=== PATIENT | male | born 1955 | race Caucasian/White ===

== ENCOUNTER 2019-05-07 09:00 | Observation (INO) ==
[2019-05-07] MEDS ORDERED: Aspirin 325 MG TABLET PO ONE (09:18)
[2019-05-07] MEDS ORDERED: 0.9 % Sodium Chloride 1,000 ML IVC ONE (09:18)
--- NOTE | 2019-05-07 09:19 | Emergency Department Note ---
Disposition Clinical Impression: Atrial fibrillation with RVR, New onset a-fib Disposition: Admitted As Inpatient Condition: Good Forms: ED Satisfaction Letter Time of Disposition: 10:37 (accepted by Dr. Verdin) General Adult HPI - General Stated complaint: afib rvr Time Seen by Provider: 05/07/19 09:08 Source: patient Mode of arrival: ambulatory Limitations: no limitations Nursing Notes Reviewed: Yes Vital Signs Reviewed: Yes - History of Present Illness HPI Narrative: Patient is a 64-year-old male presenting with abnormal heart rhythm. Patient has known history of hypertension and hyperlipidemia as well as diabetes. Patient was sent here from colonoscopy preop, as patient had an EKG performed which showed patient to be an atrial fibrillation. Patient denies any history of atrial fibrillation, he denies history of similar normal heart rhythm. He is currently asymptomatic at this time, denies shortness of breath, chest pain or palpitations. He is not any anticoagulation medications at this point. He denies leg swelling, difficulty breathing. He does have history of colectomy secondary to colon cancer, which is why he was having the repeat colonoscopy performed today. Pain Scale: 0 - Related Data Allergies Allergy/AdvReac Type Severity Reaction Status Date / Time atorvastatin AdvReac See Verified 05/07/19 08:00 Comments Review of Systems: In addition to that documented in the HPI above, the additional ROS was obtained: General: Denies fever. Denies chills. Denies weight loss. Denies behavioral change. Eyes: Denies visual changes. ENT: Denies nasal congestion. Denies sore throat. Denies hearing change. Cardio: Denies chest pain. Denies palpitations. Respiratory: Denies cough. Denies shortness of breath. Denies wheezing. GI: Denies nausea, Denies vomiting, or diarrhea. Denies hematochezia denies melena. Denies abdominal pain. : Denies dysuria, hematuria, or urinary retention MSK: Denies back pain. Denies joint swelling. Neuro: Denies slurred speech. Denies numbness or tingling. Denies focal weakness. Denies headache. Denies loss of consciousness. Psych: Denies mood changes. All systems ED: reviewed and negative except as stated. Review of Systems: As Per HPI Past Medical History - Past Medical History Medical history: Reports: cancer, diabetes, hypertension Surgical history: Reports: colectomy, tonsillectomy Psychiatric history: Reports: no psych history - Social History Smoking Status: Former smoker Smokeless Tobacco Status: No Alcohol use: Reports: none Drug use: Reports: none Physical Exam General: Conversant. No apparent distress. Follow commands. Appears stated age. Neck: No JVD. Trachea midline. Neck supple. Eyes: PERRL. No scleral icterus. HENT: Normocephalic and atraumatic. Moist mucus membranes. Cardiovascular: Irregularly irregular rhythm with tachycardic Normal S1 and S2. No murmurs appreciated. Normal capillary refill. Extremities well perfused with 2+ distal pulses bilaterally. No edema. Pulmonary: Normal and equal breath sounds bilaterally, anteriorly and posteriorly. No wheezes, rales, or rhonchi. Not in respiratory distress. Speaks in full sentences. Abdomen: Soft, nondistended, without tenderness. No bruits or masses. No guarding or rebound. Neuro: Alert and oriented x3. No slurred speech. No focal deficits noted. Skin: No rashes noted on visualized skin. Musculoskeletal: No bony abnormalities visualized. Moves all extremities. Psych: Normal mood. Pleasant. Makes appropriate eye contact. - General Limitations: no limitations General appearance: alert Course Vital Signs Temperature 98.4 F 05/07/19 09:05 Pulse Rate 107 05/07/19 09:05 Respiratory Rate 18 05/07/19 09:05 Blood Pressure 123/85 05/07/19 09:05 O2 Sat by Pulse Oximetry 97 05/07/19 09:05 Temperature 98.4 F 05/07/19 09:05 Pulse Rate 114 05/07/19 10:20 Respiratory Rate 18 05/07/19 10:20 Blood Pressure 117/88 05/07/19 10:20 O2 Sat by Pulse Oximetry 93 05/07/19 10:20 Oxygen Delivery Oxygen Delivery Room Air Medical Decision Making - [facility] Narrative Medical decision making narrative: Patient is a 64-year-old male who is presenting with new onset atrial fibrillation. Patient is otherwise in no acute distress, alert and oriented 3. EKG was obtained on arrival which shows atrial fibrillation versus atrial flutter with a ventricular rate of 105, no ischemic changes. Chest x-ray shows no acute cardio or pulmonary process. Patient is otherwise asymptomatic. He was brought in as just prior to arrival he was in the colonoscopy suite, to have a colonoscopy performed, while there he had an EKG performed which showed an abnormal heart rhythm. He was sent to the ER for further evaluation. Patient states he has no palpitations, shortness of breath or chest pain. He denies history of similar symptoms or diagnosis the past. While here, patient was given 324 mg of aspirin, he was also given a liter of fluids. Patient is remained asymptomatic. Laboratory work including CBC, BMP, troponin, PT, PTT were performed and are all within normal limits. Following the liter of fluids, patient's heart rate is high ring around 98 bpm. CHADSVASC sore for 2, was started on aspirin therapy. Patient otherwise agrees with admission, will be admitted for atrial fibrillation versus a flutter, which is new onset with RVR. Per hospital's recommendation, patient was started on heparin therapy. - Medical Records Medical records reviewed: Yes I reviewed the patient's medical records. - Lab Data Lab results reviewed: Yes I reviewed the patient's lab results. Result diagrams: 05/07/19 09:28 05/07/19 09:28 Lab Results 05/07/19 05/07/19 05/07/19 Range/Units 09:28 09:28 09:28 WBC 11.1 (4.3-11.1) K/mcL RBC 5.21 (4.19-5.50) M/mcL Hgb 15.5 (12.9-16.9) g/dL Hct 44.7 (37.5-50.1) % MCV 85.8 (83.0-100.0) fL MCH 29.8 (28.0-33.3) pg MCHC 34.7 (31.6-35.5) g/dL RDW 12.9 (11.5-14.5) % Plt Count 309 (140-400) K/mcL MPV 9.2 L (9.4-12.4) fL Immature Gran % 0.4 (0-4) % Seg Neutrophils % 66.7 % Lymphocytes % 25.3 % Monocytes % 5.9 % Eosinophils % 1.2 % Basophils % 0.5 % Neutrophils # 7.4 (1.6-8.9) K/mcL Lymphocytes # 2.8 (0.6-4.6) K/mcL Monocytes # 0.7 (0.0-1.3) K/mcL Eosinophils # 0.1 (0.0-0.6) K/mcL Basophils # 0.1 (0.0-0.2) K/mcL PT 12.5 H (9.4-12.1) Seconds INR 1.1 APTT 40.5 H (26.0-36.0) Seconds Sodium 139 (136-145) mEq/L Potassium 4.1 (3.5-5.1) mEq/L Chloride 106 (98-107) mEq/L Carbon Dioxide 23 (23-29) mEq/L BUN 11 (8-23) mg/dL Creatinine 0.70 (0.70-1.30) mg/dL Est GFR ( Amer) > 60 (> 60) Est GFR (Non-Af Amer) > 60 (> 60) BUN/Creatinine Ratio 16 (6-26) Glucose 159 H (70-105) mg/dL Calculated Osmolality 291 (280-300) Calcium 8.9 (8.6-10.3) mg/dL Magnesium 2.0 (1.6-2.6) mg/dL Troponin I < 0.03 (< 0.04) ng/mL TSH 2.344 (0.340-5.600) mcIU/mL - Radiology Data Radiology results reviewed: Yes I reviewed the patient's radiology results. Chest X-Ray 05/07/19 09:31 IMPRESSION: No acute abnormality. D/ / 05/07/2019 10:06:45 Zachary Kinney MD / taylor Interpreting Provider: Zachary Kinney MD - EKG Data EKG #1 EKG attestation: Yes I reviewed and interpreted this EKG. EKG results narrative: EKG obtained at 090 ventricular rate of 105, irregularly irregular rhythm with normal axis, no ST segment elevation, depression, no T-wave changes, appears to be either atrial fibrillation or atrial flutter. Compared to old EKG, performed in 2004, this is significant change as patient was normal sinus rhythm at that time. Attestation Statement - Attestation Attestation: I, Jayesh Singleton DO, examined this patient [id number] and my medical decision-making was reviewed with Dr. Alessandra Hays , Resident Physician. I agree with the documented findings, disposition and treatment plan as described except to the extent set forth below. I personally supervised and was present for the rodas/critical portions of the procedures completed by the resident documented below. Please see my progress notes for details.
[2019-05-07 09:39] LABS: Basophils # 0.1 K/mcL (0.0-0.2); Basophils % 0.5 %; Eosinophils # 0.1 K/mcL (0.0-0.6); Eosinophils % 1.2 %; Hematocrit 44.7 % (37.5-50.1); Hemoglobin 15.5 g/dL (12.9-16.9); Immature Granulocytes % 0.4 % (0-4); Lymphocytes # 2.8 K/mcL (0.6-4.6); Lymphocytes % 25.3 %; Mean Corpuscular HGB Conc 34.7 g/dL (31.6-35.5); Mean Corpuscular Hemoglobin 29.8 pg (28.0-33.3); Mean Corpuscular Volume 85.8 fL (83.0-100.0); Mean Platelet Volume 9.2 fL (9.4-12.4); Monocytes # 0.7 K/mcL (0.0-1.3); Monocytes % 5.9 %; Neutrophils # 7.4 K/mcL (1.6-8.9); Platelet Count 309 K/mcL (140-400); Red Blood Count 5.21 M/mcL (4.19-5.50); Red Cell Distribution Width 12.9 % (11.5-14.5); Segmented Neutrophils % 66.7 %; White Blood Count 11.1 K/mcL (4.3-11.1)
[2019-05-07 09:46] LABS: INR 1.1; Prothrombin Time 12.5 Seconds (9.4-12.1)
[2019-05-07 09:48] LABS: Activated Partial Thrombo Time 40.5 Seconds (26.0-36.0)
[2019-05-07 10:00] LABS: BUN/Creatinine Ratio 16 (6-26); Blood Urea Nitrogen 11 mg/dL (8-23); Calcium 8.9 mg/dL (8.6-10.3); Carbon Dioxide 23 mEq/L (23-29); Chloride 106 mEq/L (98-107); Glucose 159 mg/dL (70-105); Osmolality,Calculated 291 (280-300); Potassium 4.1 mEq/L (3.5-5.1); Sodium 139 mEq/L (136-145); Troponin I < 0.03 ng/mL (< 0.04); eGFR For African Americans > 60 (> 60); eGFR For Non-African Americans > 60 (> 60)
[2019-05-07 10:14] LABS: Thyroid Stimulating Hormone 2.344 mcIU/mL (0.340-5.600)
--- NOTE | 2019-05-07 10:54 | Emergency Department Note ---
Disposition Clinical Impression: Atrial fibrillation with RVR, New onset a-fib Disposition: Admitted As Inpatient Condition: Fair Time of Disposition: 10:54 General Adult HPI - General Chief complaint: ED Arrhythmia/Palpitations Stated complaint: afib rvr Time Seen by Provider: 05/07/19 09:08 Source: patient Limitations: no limitations - History of Present Illness Pain Scale: 0 - Related Data Allergies Allergy/AdvReac Type Severity Reaction Status Date / Time atorvastatin AdvReac See Verified 05/07/19 08:00 Comments Past Medical History - Past Medical History Medical history: Reports: cancer, diabetes, hypertension Surgical history: Reports: colectomy, tonsillectomy Psychiatric history: Reports: no psych history - Social History Smoking Status: Former smoker Smokeless Tobacco Status: No Alcohol use: Reports: none Drug use: Reports: none Physical Exam - General Limitations: no limitations General appearance: alert Course Vital Signs Temperature 98.4 F 05/07/19 09:05 Pulse Rate 107 05/07/19 09:05 Respiratory Rate 18 05/07/19 09:05 Blood Pressure 123/85 05/07/19 09:05 O2 Sat by Pulse Oximetry 97 05/07/19 09:05 Temperature 98.4 F 05/07/19 09:05 Pulse Rate 114 05/07/19 10:20 Respiratory Rate 18 05/07/19 10:20 Blood Pressure 117/88 05/07/19 10:20 O2 Sat by Pulse Oximetry 93 05/07/19 10:20 Oxygen Delivery Oxygen Delivery Room Air Medical Decision Making - Lab Data Result diagrams: 05/07/19 09:28 05/07/19 09:28 Lab Results 05/07/19 05/07/19 05/07/19 Range/Units 09:28 09:28 09:28 WBC 11.1 (4.3-11.1) K/mcL RBC 5.21 (4.19-5.50) M/mcL Hgb 15.5 (12.9-16.9) g/dL Hct 44.7 (37.5-50.1) % MCV 85.8 (83.0-100.0) fL MCH 29.8 (28.0-33.3) pg MCHC 34.7 (31.6-35.5) g/dL RDW 12.9 (11.5-14.5) % Plt Count 309 (140-400) K/mcL MPV 9.2 L (9.4-12.4) fL Immature Gran % 0.4 (0-4) % Seg Neutrophils % 66.7 % Lymphocytes % 25.3 % Monocytes % 5.9 % Eosinophils % 1.2 % Basophils % 0.5 % Neutrophils # 7.4 (1.6-8.9) K/mcL Lymphocytes # 2.8 (0.6-4.6) K/mcL Monocytes # 0.7 (0.0-1.3) K/mcL Eosinophils # 0.1 (0.0-0.6) K/mcL Basophils # 0.1 (0.0-0.2) K/mcL PT 12.5 H (9.4-12.1) Seconds INR 1.1 APTT 40.5 H (26.0-36.0) Seconds Sodium 139 (136-145) mEq/L Potassium 4.1 (3.5-5.1) mEq/L Chloride 106 (98-107) mEq/L Carbon Dioxide 23 (23-29) mEq/L BUN 11 (8-23) mg/dL Creatinine 0.70 (0.70-1.30) mg/dL Est GFR ( Amer) > 60 (> 60) Est GFR (Non-Af Amer) > 60 (> 60) BUN/Creatinine Ratio 16 (6-26) Glucose 159 H (70-105) mg/dL Calculated Osmolality 291 (280-300) Calcium 8.9 (8.6-10.3) mg/dL Magnesium 2.0 (1.6-2.6) mg/dL Troponin I < 0.03 (< 0.04) ng/mL TSH 2.344 (0.340-5.600) mcIU/mL Attestation Statement - Attestation Attestation: I, Jayesh Singleton DO, examined this patient [id number] and my medical decision-making was reviewed with Dr. Alessandra Hays , Resident Physician. I agree with the documented findings, disposition and treatment plan as described except to the extent set forth below. I personally supervised and was present for the rodas/critical portions of the procedures completed by the resident documented below. Please see my progress notes for details. 64-year-old male presents emergency room after having the colonoscopy testing completed here this morning. He was evaluated and they noticed that he was in atrial fibrillation. Patient is never had anything like this before. He had a scheduled outpatient colonoscopy secondary to a history of colon cancer with a bowel resection. Patient is denied any chest pain shortness of breath fevers chills nausea vomiting or diarrhea. Denies any headache or vision change. He has not fallen or injured himself. He has been taking all of his normal medications as prescribed. Patient is otherwise clinically stable and in no distress. Lungs are clear heart is irregular but not tachycardic. Abdomen is soft no pulsatile masses or lesions. Family is otherwise normal. No signs of pitting edema or swelling. No rashes or lesions noted on exam. Vital signs reviewed and are unremarkable patient's blood pressure is stable at this time. Patient will have detailed workup completed looking for potential abnormality that causes cardiac arrhythmia. This time. Chest x-ray EKG CBC chemistry troponin and BNP and thyroid function will be tested. Patient's EKG is reviewed by myself in documented in the resident physician's note. Concern for possible underlying atrial flutter with irregular ventricular response versus pure atrial fibrillation was noted. This information will be discussed with the hospitalist for admission. Patient is otherwise stable. See detailed documentation the physical exam, medical intervention, medical decision-making disposition the resident physician's documentation. No critical care provider the patient's treatment course at this time. Aspirin has been given. Patient does not requ radha any other aggressive anticoagulation based on his chads score. 1045 Patient was discussed with the hospitalist Dr. glover. Detailed review of the presentations the symptoms and medical intervention and evaluation were discussed at length. Patient at this time will be admitted for what appears to be cardiac arrhythmia with unknown etiology at this time. Patient is otherwise clinically stable. No other recommendations or concerns are noted at this point. Patient will be monitored here in the emergency department until the admission process is completed.
[2019-05-07] MEDS ORDERED: *HR* Heparin 5,000 UNIT/ML VIAL IVP PRN ×2 (10:56)
[2019-05-07] MEDS ORDERED: *HR* Heparin 5,000 UNIT/ML VIAL IVP ONE (10:56)
[2019-05-07] MEDS ORDERED: Ondansetron 4 MG/2 ML VIAL IVP PRN (10:57)
[2019-05-07] MEDS ORDERED: Naloxone 0.4 MG/ML INJ IVP PRN (10:57)
[2019-05-07] MEDS ORDERED: Acetaminophen 325 MG TABLET PO PRN (10:57)
[2019-05-07] MEDS ORDERED: *HR* Metoprolol 5 MG/5 ML VIAL IVP PRN (11:02)
[2019-05-07 11:36] LABS: Heparin anti-factor XA UFH 0.05 IU/mL (0.30-0.70); INR 1.1; Prothrombin Time 12.3 Seconds (9.4-12.1)
[2019-05-07] MEDS: Heparin 25,000 UNIT/250 ML D5W 25,000 UNIT/250 ML IV.SOLN IVC SCH (12:17)
[2019-05-07] MEDS ORDERED: D5% in Water 1,000 ML IVC PRN (17:18)
[2019-05-07] MEDS ORDERED: *HR* Dextrose 50 % in Water (Syg) 50 ML SYRINGE IVP PRN (17:18)
[2019-05-07] MEDS ORDERED: Dextrose Gel 15 GM/37.5 ML TUBE PO PRN ×2 (17:18)
--- NOTE | 2019-05-07 17:24 | Internal Med History&Physical ---
Date of Encounter: 05/07/19 Time of Encounter: 11:30 Internal Medicine - H&P: HPI Admitted From: Emergency Dept Plans for Post Hospital Care: Home History of present illness: Mr. Domínguez is a 64 year old male with past medical history for colorectal cancer status post colectomy, hypertension hyperlipidemia and diabetes. He stated he was undergoing preop clearance for scheduled routine colonoscopy when he was noted on exam to have irregular heartbeat by his primary care physician. He stated that the physician on EKG which revealed atrial fibrillation as such he was referred to the ED to be evaluated. Patient denies being symptomatic he did admit to having occasional episodes of palpitation over the past few years but nothing really extraordinary. 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 Work up at the ED was unremarkable including CBC, BMP, TSH and initial troponin. He was rate controlled as such was only started on heparin drip per protocol Past Med Surg Social Fam HX - Past Medical History Medical history: cancer, diabetes, hypertension Additional medical history: colon cancer Psychiatric history: no psych history - Past Surgical History Surgical History: colectomy, tonsillectomy Additional surgical history: colon surgery - Social History Smoking Status: Former smoker Smokeless Tobacco Status: No Alcohol use: none Drug use: none Internal Medicine - H&P: Meds Allergy/AdvReac Type Severity Reaction Status Date / Time atorvastatin AdvReac See Verified 05/07/19 08:00 Comments All Systems PM: GENERAL: Denies fever, chills, fatigue or night sweats. DERMATOLOGIC: Denies itch, rash or lesions HEENT: Denies headache, blurriness, diplopia or decreased visual acuity, ear pain, tinnitus, rhinorrhea, sinus tenderness or sore throat RESPIRATORY: Denies SOB, cough, hemoptysis or pleuritic chest pain CARDIOVASCULAR: Denies chest pain, LE edema, reports intermittent episodes of palpitation GASTRO INTESTINAL: Denies cramps, nausea/vomiting, reports diarrhea secondary to bowel prep MUSCULOSKELATAL: Denies muscle pain/weakness, joint tenderness/pain or swelling PSYCH: Denies worsening anxiety, or depression NEURO: Denies vertigo, dizziness, or ataxia GENITURINARY: Denies dysuria, nocturia or urinary incontinence - Constitutional Vitals: Temp Pulse Resp BP Pulse Ox 98.2 F 74 14 113/72 95 05/07/19 15:41 05/07/19 15:41 05/07/19 15:41 05/07/19 15:41 05/07/19 15:41 Exam: GENERAL: Obese male NAD, A&O x3, pleasant and conversant SKIN: No skin lesions or rashes, non-jaundiced EYES: EOMI, PERRLA, no sclera icterus HENT: Head atraumatic, no facial asymmetry, frontal and maxillary sinus non- tender, normal hearing, oropharynx and mucosa moist and without any exudates NECK: No cervical lymphadenopathy, trachea midline, thyroid is palpable does not appear enlarged LUNGS: vesicular breath sounds, clear to auscultation, no wheeze, rhonchi, rales or crackles. Non labored respirations HEART: Normal rate and rhythm, no murmurs or rubs ABDOMEN: soft, non-tender, non-distended, bowel sounds x 4 normoactive, large ventral hernia noted large healed surgical scar EXTRMITIES: No LE asymmetry, No LE edema, pedal pulses 1+ and radial pulses 2 + and equal bilaterally NEURO: Speech and comprehension appears intact. . PSYCH: Cooperative, non- anxious or irritable, mood and affect is appropriate Internal Med - H&P Results - Labs CBC & Chem 7: 05/07/19 09:28 05/07/19 09:28 Labs: Short CBC 05/07/19 Range/Units 09:28 WBC 11.1 (4.3-11.1) K/mcL Hgb 15.5 (12.9-16.9) g/dL Hct 44.7 (37.5-50.1) % Plt Count 309 (140-400) K/mcL Neutrophils # 7.4 (1.6-8.9) K/mcL BMP 05/07/19 09:28 Sodium 139 Potassium 4.1 Chloride 106 Carbon Dioxide 23 BUN 11 Creatinine 0.70 Glucose 159 H Calcium 8.9 Cardiac Enzymes 05/07/19 Range/Units 09:28 Troponin I < 0.03 (< 0.04) ng/mL - Impressions ITS Impressions Chest X-Ray 05/07/19 09:31 IMPRESSION: No acute abnormality. D/ / 05/07/2019 10:06:45 Zachary Kinney MD / taylor Interpreting Provider: Zachary Kinney MD - Assessment and Plan (1) New onset a-fib Current Visit: Yes Status: Acute Assessment and plan: Regular rate controlled we will start 5mg metoprolol every 6, rate above 110, monitor on telemetry and obtain a 2-D echo. 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 Discussed anticoagulation, his CHADSvaq is 1 for hx of DM or 2 at worst. Mentioned the watchman device with the patient he is interested we will consult cardiology. (2) Diabetes Current Visit: Yes Status: Acute Qualifiers: Diabetes mellitus type: type 2 Diabetes mellitus long term care pharmacist insulin use: without correction use Diabetes mellitus complication status: without complication Qualified Code(s): E11.9 - Type 2 diabetes mellitus without complications (3) Hypertension Current Visit: Yes Status: Acute Assessment and plan: Normotensive Qualifiers: Hypertension type: essential hypertension Qualified Code(s): I10 - Essential (primary) hypertension (4) DVT prophylaxis Current Visit: Yes Status: Acute Assessment and plan: Patient is on heparin drip - Time Spent With Patient Total time spent is greater than 50% in coordination of care (as documented) at patient's floor/unit and/or counseling patient:
[2019-05-07] MEDS ORDERED: Perflutren Lipid Microsphere 1.3 ML in 0.9 % Sodium Chloride 8.7 ML IVP ONE (20:00)
[2019-05-07] MEDS ORDERED: Insulin DETEMIR 100 UNIT/ML X5UNITS SQ SCH (21:00)
[2019-05-08 01:04] LABS: Basophils # 0.1 K/mcL (0.0-0.2); Basophils % 0.5 %; Eosinophils # 0.2 K/mcL (0.0-0.6); Eosinophils % 1.5 %; Hematocrit 40.8 % (37.5-50.1); Hemoglobin 14.1 g/dL (12.9-16.9); Immature Granulocytes % 0.4 % (0-4); Lymphocytes # 3.6 K/mcL (0.6-4.6); Lymphocytes % 34.9 %; Mean Corpuscular HGB Conc 34.6 g/dL (31.6-35.5); Mean Corpuscular Hemoglobin 29.8 pg (28.0-33.3); Mean Corpuscular Volume 86.3 fL (83.0-100.0); Mean Platelet Volume 9.5 fL (9.4-12.4); Monocytes # 0.7 K/mcL (0.0-1.3); Monocytes % 7.1 %; Neutrophils # 5.8 K/mcL (1.6-8.9); Platelet Count 257 K/mcL (140-400); Red Blood Count 4.73 M/mcL (4.19-5.50); Red Cell Distribution Width 12.9 % (11.5-14.5); Segmented Neutrophils % 55.6 %; White Blood Count 10.4 K/mcL (4.3-11.1)
[2019-05-08 01:20] LABS: BUN/Creatinine Ratio 19 (6-26); Blood Urea Nitrogen 15 mg/dL (8-23); Calcium 8.7 mg/dL (8.6-10.3); Carbon Dioxide 25 mEq/L (23-29); Chloride 104 mEq/L (98-107); Chol/HDL Ratio 6.6 (0-4.9); Cholesterol 139 mg/dL (< 200); Glucose 138 mg/dL (70-105); HDL Cholesterol 21 mg/dL (40-59); LDL Cholesterol,Calculated 53 mg/dL (0-99); Magnesium 2.1 mg/dL (1.6-2.6); Osmolality,Calculated 291 (280-300); Sodium 139 mEq/L (136-145); Triglycerides 325 mg/dL (< 150); eGFR For African Americans > 60 (> 60); eGFR For Non-African Americans > 60 (> 60)
[2019-05-08] MEDS: Heparin 25,000 UNIT/250 ML D5W 25,000 UNIT/250 ML IV.SOLN IVC SCH (02:41)
[2019-05-08] MEDS ORDERED: D5% in Water 1,000 ML IVC PRN (07:54)
[2019-05-08] MEDS ORDERED: *HR* Dextrose 50 % in Water (Syg) 50 ML SYRINGE IVP PRN (07:54)
[2019-05-08] MEDS ORDERED: Dextrose Gel 15 GM/37.5 ML TUBE PO PRN ×2 (07:54)
[2019-05-08] MEDS ORDERED: Insulin LISPRO 300 UNITS/3 ML VIAL SQ SCH (08:00)
--- NOTE | 2019-05-08 08:24 | Internal Med Progress Note ---
Hospitalist Progress Note - Encounter Date of Encounter: 05/08/19 Time of Encounter: 10:00 - Subjective Interval History: No acute events overnight - Exam Vitals: Temp Pulse Resp BP Pulse Ox 97.5 F L 92 20 119/87 94 05/08/19 07:16 05/08/19 07:16 05/08/19 07:16 05/08/19 07:16 05/08/19 07:16 Exam: GENERAL: Obese male NAD, A&O x3, pleasant and conversant SKIN: No skin lesions or rashes, non-jaundiced EYES: EOMI, PERRLA, no sclera icterus HENT: Head atraumatic, no facial asymmetry, frontal and maxillary sinus non- tender, normal hearing, oropharynx and mucosa moist and without any exudates NECK: No cervical lymphadenopathy, trachea midline, thyroid is palpable does not appear enlarged LUNGS: vesicular breath sounds, clear to auscultation, no wheeze, rhonchi, rales or crackles. Non labored respirations HEART: Normal rate and rhythm, no murmurs or rubs ABDOMEN: soft, non-tender, non-distended, bowel sounds x 4 normoactive, large ventral hernia noted large healed surgical scar EXTRMITIES: No LE asymmetry, No LE edema, pedal pulses 1+ and radial pulses 2 + and equal bilaterally NEURO: Speech and comprehension appears intact. . PSYCH: Cooperative, non- anxious or irritable, mood and affect is appropriate - Assessment and Plan (1) New onset a-fib Current Visit: Yes Status: Acute Assessment and Plan: Patient comes in for a colonoscopy and found to be in new onset atrial fibrillation [id number] score of 2 (HTN, DM) Was on beta blockers IV and heparin drip overnight. Transitioned to po beta blockers and is rate controlled. Started on aspirin Heparin drip is discontinued and plan to transition to eliquis. For stress test tmrw to evaluate ischemic cardiomyopathy as EF was 45% on echo Will check with GI if okay for adjunct faculty for medical terminology anticoagulation in setting of colon cancer with bowel resection per cardio request. (2) Diabetes Current Visit: Yes Status: Acute Assessment and Plan: Continue insulin and monitor fingersticks (3) Hypertension Current Visit: Yes Status: Acute Assessment and Plan: Continue lisinopril and metoprolol (4) DVT prophylaxis Current Visit: Yes Status: Acute Assessment and Plan: Heparin sc - Time Spent with Patient Total time spent is greater than 50% in coordination of care (as documented) at patient's floor/unit and/or counseling patient: Internal Medicine: Result - Labs CBC & Chem 7: 05/08/19 00:14 05/08/19 00:14 Labs: Short CBC 05/07/19 05/08/19 Range/Units 09:28 00:14 WBC 11.1 10.4 (4.3-11.1) K/mcL Hgb 15.5 14.1 (12.9-16.9) g/dL Hct 44.7 40.8 (37.5-50.1) % Plt Count 309 257 (140-400) K/mcL Neutrophils # 7.4 5.8 (1.6-8.9) K/mcL BMP 05/07/19 05/08/19 09:28 00:14 Sodium 139 139 Potassium 4.1 4.0 Chloride 106 104 Carbon Dioxide 23 25 BUN 11 15 Creatinine 0.70 0.78 Glucose 159 H 138 H Calcium 8.9 8.7 Cardiac Enzymes 05/07/19 Range/Units 09:28 Troponin I < 0.03 (< 0.04) ng/mL - ABG Interpretation ABG results: PT/INR, D-dimer PT 12.3 Seconds (9.4-12.1) H 05/07/19 11:07 - Impressions Impressions Chest X-Ray 05/07/19 09:31 IMPRESSION: No acute abnormality. D/ / 05/07/2019 10:06:45 Zachary Kinney MD / taylor Interpreting Provider: Zachary Kinney MD Echocardiogram 05/07/19 22:53 Impressions: LVEF 45%. Normal LV chamber size.Mild concentric left ventricular hypertrophy. Indeterminate diastolic function. Normal right ventricular structure and function. Moderate biatrial enlargement. Mild tricuspid regurgitation. No evidence of pulmonary hypertension. Left Ventricular Wall Motion: Rest Echo Findings The apex, apical inferior, mid inferior, basal inferior, apical anterior, mid anterior, basal anterior, apical septal, mid inferior septal, basal inferior septal, apical lateral, mid anterior lateral, basal anterior lateral, mid anterior septal, mid inferior lateral, basal anterior septal and basal inferior lateral tejeda were hypokinetic. Findings: Study Quality * Technically adequate exam. ECG Findings * Atrial flutter. Left Ventricle * LVEF 45%. * Normal LV chamber size.Mild concentric left ventricular hypertrophy. * Indeterminate diastolic function. * Definity echo contrast was used. * There is no LV thrombus. * Atypical septal motion noted. * Right Ventricle * Normal right ventricular structure and function. Left Atrium * Moderate biatrial enlargement. Right Atrium * Moderately dilated right atrium. Interatrial Septum * Interatrial septum not well evaluated. Aortic Valve * Trileaflet aortic valve. * No aortic regurgitation. * No aortic stenosis. Mitral Valve * Normal mitral valve structure. Tricuspid Valve * Mild tricuspid regurgitation. * No evidence of pulmonary hypertension. * No tricuspid stenosis. Pulmonic Valve * Pulmonic valve not well visualized. Aorta * Normally sized aortic root. Pericardium * The pericardium appears normal. IVC * Normal IVC dimensions and inspiratory collapse. Pulmonary Artery * Pulmonary artery not well visualized. Consult Discharge Plan - Plan [facility]errals: [facility] [Primary Care Provider] - (2) Diabetes Qualifiers: Diabetes mellitus type: type 2 Diabetes mellitus correction insulin use: without adjunct faculty for medical terminology use Diabetes mellitus complication status: without complication Qualified Code(s): E11.9 - Type 2 diabetes mellitus without complications (3) Hypertension Qualifiers: Hypertension type: essential hypertension Qualified Code(s): I10 - Essential (primary) hypertension
[2019-05-08] MEDS: Aspirin 81 MG TAB.CHEW PO SCH (08:55)
[2019-05-08] MEDS: Insulin LISPRO 300 UNITS/3 ML VIAL SQ SCH ×4 (08:55→21:10)
--- NOTE | 2019-05-08 11:20 | Electrocardiograph Report ---
[employer] Test Date: 2019-05-07 Pat Name: oLs Domínguez Department: [id number] Room: 2A45 Gender: M District Captain: : 1955 Requested By: Alessandra Hays Order Number: [id number] Reading MD: Keith Sanders Measurements Intervals [place] Rate: 105 P: NC: QRS: 55 QRSD: 103 T: 43 QT: 361 QTc: 478 Interpretive Statements Atrial fibrillation Low voltage, precordial leads RSR' in V1 or V2, probably normal variant Borderline prolonged QT interval Electronically Signed On 05-08-2019 11:18:59 EDT by Keith Sanders
--- NOTE | 2019-05-08 12:46 | Cardiology Consult Note ---
<Darlene Gonzalez - Last Filed: 05/08/19 14:51> Date of Encounter: 05/08/19 Time of Encounter: 11:30 Assessment and Plan (1) New onset a-fib Current Visit: Yes Status: Acute Found to be in Afib, HR low 100s when presented for a scheduled colonoscopy. Peak HR 155. HR well controlled now (80s-90s) on Lopressor 12.5 BID. [id number] = 2. A/R/B of anticoagulation discussed at length with patient. 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 Zheng checking Eliquis with patient's pharmacy. (2) Abnormal echocardiogram Current Visit: Yes Status: Acute -Echo 05/08/19: LVEF 45%. Normal LV chamber size, Mild concentric left ventricular hypertrophy, Normal right ventricular structure and function, Moder ate biatrial enlargement, Mild tricuspid regurgitation, global hypokinesis. No previous echo to compare. Discussed results of echo with patient and the recommendation for an ischemic eval. Presented the options of LHC vs. stress test. Patient would like to proceed with stress test so we will begin two day nuclear stress test today. Discussion w patient/family: The assessment and plan as outlined above was discussed with the patient and/or family members who expressed understanding and agreement. All questions were answered. Thank you for involving us in the care of your patient. Please call with any questions. The above assessment and plan will be discussed with Dr. Womack and I will make changes as appropriate. History of Present Illness Consult date: 05/08/19 Consult reason: New onset Afib History of present illness: Mr. Domínguez is a 64 year old male with PMH HTN, HLD, colon ca s/p colectomy ~6 years ago and DM presented today for a colonoscopy and was found to be in atrial fibrillation. Denies history of Afib. Denies palpitations, CP, dizziness and SOB. Past Med Surg Social Fam HX - Past Medical History Medical history: cancer, diabetes, hypertension Additional medical history: colon cancer Psychiatric history: no psych history - Past Surgical History Surgical History: colectomy, tonsillectomy Additional surgical history: colon surgery - Social History Smoking Status: Former smoker Smokeless Tobacco Status: No Alcohol use: none Drug use: none Medications and Allergies Fluticasone Propionate Nasal [Flonase] 100 mcg NS BID PRN 05/08/19 [History] Gemfibrozil [Lopid] 600 mg PO BID 05/08/19 [History] Lisinopril [Zestril] 20 mg PO DAILY 05/08/19 [History] Metformin HCl [Glucophage] 1,000 mg PO BID 05/08/19 [History] Allergy/AdvReac Type Severity Reaction Status Date / Time atorvastatin AdvReac Muscle Pain Verified 05/08/19 12:04 All Systems Review: The remainder of the systems were reviewed and are negative - Cardiovascular Cardiovascular: as per HPI Physical Examination Vital Signs, Last 4 Hours Temp Pulse Resp BP Pulse Ox 05/08/19 11:03 97.7 F 91 20 110/66 94 General: Conversant, No Apparent Distress HEENT: Atraumatic, Normocephaly, Mucus Membranes Moist Neck: No JVD, Normal carotid pulses Cardiac: Normal S1 and S2 (irregularly irregular) Lungs: Normal Breath Sounds, No Wheeze, Rales, Rhonchi Neuro: Alert and responsive, No focal deficits noted Abdomen: Soft, Non-Tender Skin: No rashes noted on visualized skin Musculoskeletal: No Chest Wall Tenderness Extremities: No Cyanosis, Normal Pulses Results 05/08/19 00:14 05/08/19 00:14 Lab Results 05/08/19 05/08/19 00:14 00:14 WBC 10.4 Hgb 14.1 Hct 40.8 Plt Count 257 Sodium 139 Potassium 4.0 Chloride 104 Carbon Dioxide 25 BUN 15 Creatinine 0.78 Glucose 138 H Calcium 8.7 Magnesium 2.1 - Imaging and Cardiology Stress Test: pending Echo: report reviewed Other Results: 12hr tele reviewed: average HR 103, atrial fib. - EKG Interpretation EKG results cardiology: personally reviewed, no diagnostic ischemia Consult Discharge Plan - Plan Referrals: [facility],PCP [Primary Care Provider] - CHADS2-VASC Score - Score Age: Less than 65 Sex: Male CHF History: No Hypertension history: Yes Stroke/TIA/Thromboembolism Hx: No Vascular disease history: No Diabetes history: Yes Score: 2 Cardiac Rehab - Cardiac Rehab Cardiac Rehab: Phase I consult completed. Patient was educated on why Cardiac Rehabilitation is beneficial to his/her health. Participating in a cardiac rehabilitation can improve the following: strengthen your heart, improve ejection fraction, weight reduction, decrease cholesterol levels, lower blood pressure, lower blood sugar, improve stamina, and enhance self-image. If he/she has any questions, they were instructed to call [facility] at [phone]. <Chary Womack - Last Filed: 05/08/19 17:31> Date of Encounter: 05/08/19 - Attending Attestation I examined this patient and my medical decision-making was reviewed with the CROP SUPERVISOR. I agree with the documented findings, disposition and treatment plan as described. Assessment and Plan Discussion w patient/family: The assessment and plan as outlined above was discussed with the patient and/or family members who expressed understanding and agreement. All questions were answered. Thank you for involving us in the care of your patient. Please call with any questions. History of Present Illness History of present illness: Mr. Domínguez is a 64 year old male All Systems Review: The remainder of the systems were reviewed and are negative Physical Examination Vital Signs, Last 4 Hours Temp Pulse Resp BP Pulse Ox 05/08/19 15:58 98.0 F 85 18 120/85 94 Results 05/08/19 00:14 05/08/19 00:14 Lab Results 05/08/19 05/08/19 00:14 00:14 WBC 10.4 Hgb 14.1 Hct 40.8 Plt Count 257 Sodium 139 Potassium 4.0 Chloride 104 Carbon Dioxide 25 BUN 15 Creatinine 0.78 Glucose 138 H Calcium 8.7 Magnesium 2.1 Cardiac Rehab - Cardiac Rehab Cardiac Rehab: Phase I consult completed. Patient was educated on why Cardiac Rehabilitation is beneficial to his/her health. Participating in a cardiac rehabilitation can improve the following: strengthen your heart, improve ejection fraction, weight reduction, decrease cholesterol levels, lower blood pressure, lower blood sugar, improve stamina, and enhance self-image. If he/she has any questions, they were instructed to call [facility] at [phone].
[2019-05-08] MEDS: *HR* Heparin 5,000 UNIT/ML VIAL SQ SCH (16:40)
[2019-05-09 01:53] LABS: Basophils % 0.5 %; Eosinophils # 0.1 K/mcL (0.0-0.6); Eosinophils % 1.6 %; Hematocrit 40.8 % (37.5-50.1); Hemoglobin 13.8 g/dL (12.9-16.9); Immature Granulocytes % 0.4 % (0-4); Mean Corpuscular HGB Conc 33.8 g/dL (31.6-35.5); Mean Corpuscular Volume 85.7 fL (83.0-100.0); Mean Platelet Volume 9.3 fL (9.4-12.4); Monocytes # 0.6 K/mcL (0.0-1.3); Monocytes % 7.5 %; Neutrophils # 4.7 K/mcL (1.6-8.9); Platelet Count 255 K/mcL (140-400); Red Blood Count 4.76 M/mcL (4.19-5.50); Red Cell Distribution Width 12.9 % (11.5-14.5); White Blood Count 8.6 K/mcL (4.3-11.1)
[2019-05-09 02:04] LABS: BUN/Creatinine Ratio 18 (6-26); Blood Urea Nitrogen 14 mg/dL (8-23); Calcium 8.7 mg/dL (8.6-10.3); Carbon Dioxide 26 mEq/L (23-29); Chloride 103 mEq/L (98-107); Glucose 148 mg/dL (70-105); Magnesium 2.2 mg/dL (1.6-2.6); Osmolality,Calculated 289 (280-300); Phosphorous 3.3 mg/dL (2.7-4.5); Potassium 3.9 mEq/L (3.5-5.1); Sodium 138 mEq/L (136-145); eGFR For African Americans > 60 (> 60); eGFR For Non-African Americans > 60 (> 60)
[2019-05-09] MEDS ORDERED: Regadenoson 0.4 MG/5 ML SYRINGE IVP ONE (06:09)
[2019-05-09] MEDS: *HR* Heparin 5,000 UNIT/ML VIAL SQ SCH (06:17)
[2019-05-09] MEDS: Insulin LISPRO 300 UNITS/3 ML VIAL SQ SCH ×4 (07:30→22:13)
[2019-05-09] MEDS: Aspirin 81 MG TAB.CHEW PO SCH (09:27)
--- NOTE | 2019-05-09 10:43 | Gastroenterology Consult Note ---
<العليEver Jaramillo - Last Filed: 05/09/19 10:41> Date of Encounter: 05/09/19 Time of Encounter: 09:40 - Assessment and plan (1) New onset a-fib Current Visit: Yes Status: Acute Assessment and plan: Due to history of colon cancer, recent BRBPR, and need for snf anticoagulation, plan for EGD and colonoscopy tomorrow. Plan for EGD and colonoscopy tomorrow. Clear liquid diet today, no red or purple. NPO at midnight. If not clear by 6 AM, give 2 tap water enemas. (2) BRBPR (bright red blood per rectum) Current Visit: Yes Status: Acute Assessment and plan: Patient was seen in GI office in January 2019 and scheduled for colonoscopy d/t BRBPR with wiping. No further episodes since that time. Hgb within normal limits. Plan for colonoscopy tomorrow. Clear liquid diet today, no red or purple. NPO at midnight. If not clear by 6 AM, give 2 tap water enemas. - Time Spent With Patient Total time spent is greater than 50% in coordination of care (as documented) at patient's floor/unit and/or counseling patient: GI History of Present Illness - Data of Consult Patient: known to practice within the last 3 years Consult date: 05/09/19 Requesting Physician: Apolinar Burns - Consult Narrative Reason for consult: Clearance for long-term anticoagulation History of present illness: Mr. Domínguez is a 64 year old male with PMHx of colorectal cancer diagnosed 6-7 years ago s/p partial colectomy, DM, HTN who had presented for outpatient colonoscopy and EKG showed patient in Afib. He was sent to the ED for evaluation. Patient was seen 01/24/2019 in the GI office and scheduled for colonoscopy due to BRBPR wth wiping. He denies any BRBPR or melena at this time. We were consulted to evaluate patient for clearance for snf anticoagulation. Procedures: Colonoscopy 3 years ago at MD: Normal per patient report. NSAIDs: None Anticoagulation: None Past Med Surg Social Fam HX - Past Medical History Medical history: cancer, diabetes, hypertension Additional medical history: colon cancer Psychiatric history: no psych history - Past Surgical History Surgical History: colectomy, tonsillectomy Additional surgical history: colon surgery - Social History Smoking Status: Former smoker Smokeless Tobacco Status: No Alcohol use: none Drug use: none - Gastrointestinal Gastrointestinal: Present: as per HPI - Constitutional Constitutional: as per HPI - EENT Eyes: as per HPI Ears: Present: as per HPI Nose, mouth and throat: Present: as per HPI - Cardiovascular Cardiovascular ROS: Present: as per HPI - Respiratory Respiratory IM: Present: as per HPI - Genitourinary Genitourinary: Absent: change in color, Urinary frequency - Neurological ROS Neurological GI: Present: as per HPI - Hematologic/Lymphatic Hematologic/Lymphatic pediatric: Present: as per HPI - Musculoskeletal Musculoskeletal ROS GI: Present: as per HPI - Integumentary Integumentary GI: Present: as per HPI - Psychiatric ROS Psychiatric GI: Present: as per HPI - Endocrine Endocrine IM: Present: as per HPI - Constitutional Vitals: Temp Pulse Resp BP Pulse Ox 97.5 F L 92 16 125/90 93 05/09/19 07:01 05/09/19 07:01 05/09/19 07:01 05/09/19 07:01 05/09/19 07:01 General appearance: Present: cooperative, A&O X 3, no acute distress, answers questions appropriately - Head Head exam: Present: atraumatic, normocephalic - Eye Eye exam: Present: normal appearance, sclera anicteric - ENT ENT exam: Present: mucous membranes moist - Neck Neck exam general surgery: Present: normal inspection, trachea midline - Respiratory Respiratory exam: Present: CTAB. Absent: rales, rhonchi, wheezes - Cardiovascular Cardiovascular exam: Present: irregular rhythm - GI/Abdominal GI/Abdominal exam: Present: soft, no peritoneal signs. Absent: distended, firm, guarding, tenderness - Rectal Rectal exam: Present: deferred - Extremities Exam Extremities exam: Present: warm - Neurological Exam Neurological exam: Present: no focal deficits - Psychiatric Psychiatric exam: Present: normal affect, normal mood - Skin Skin exam: Present: dry, intact, normal color, warm Results - Labs CBC & Chem 7: 05/09/19 01:11 05/09/19 01:11 Labs: Last Result 05/09/19 01:11 Calcium 8.7 Entire Visit 05/09/19 01:11 Hgb 13.8 Hct 40.8 - ABG ABG results: PT/INR, D-dimer PT 12.3 Seconds (9.4-12.1) H 05/07/19 11:07 Consult Discharge Plan - Plan Referrals: [facility] [Primary Care Provider] - <Ian Werner - Last Filed: 05/10/19 04:31> Date of Encounter: 05/09/19 - Time Spent With Patient Total time spent is greater than 50% in coordination of care (as documented) at patient's floor/unit and/or counseling patient: GI History of Present Illness - Data of Consult Requesting Physician: Apolinar Burns - Consult Narrative History of present illness: Mr. Domínguez is a 64 year old male - Constitutional Vitals: Temp Pulse Resp BP Pulse Ox 97.6 F 83 18 118/72 94 05/10/19 03:13 05/10/19 03:13 05/10/19 03:13 05/10/19 03:13 05/10/19 03:13 Results - Labs CBC & Chem 7: 05/09/19 01:11 05/09/19 01:11 - ABG ABG results: PT/INR, D-dimer PT 12.3 Seconds (9.4-12.1) H 05/07/19 11:07 - Attending Attestation Reviewed the EGD and dilation report and chart as above. Agree with barium swallow for objective assessment of the problem that did not apparently get significantly better post dilation. Patient feels better today which may be due to Reglan addition. Will follow. I examined this patient and my medical decision-making was reviewed with the Medical Student. I agree with the documented findings, disposition and treatment plan as described except to the extent set forth below.
--- NOTE | 2019-05-09 11:58 | Cardiology Progress Note ---
Date of Encounter: 05/09/19 Time of Encounter: 11:55 Assessment and Plan (1) New onset a-fib Current Visit: Yes Status: Acute Found to be in Afib, HR low 100s when presented for a scheduled colonoscopy. Peak HR 155. HR well controlled now (80s-90s) on Lopressor 12.5 BID. [id number] = 2. A/R/B of anticoagulation discussed at length with patient. 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 Started on Xarelto as patient prefers single daily dosing. Will change BB to 25mg Toprol XL QD. Will arrange f/up in about 2 weeks and cardiology will sign off at this time. Please re-consult as needed. (2) Abnormal echocardiogram Current Visit: Yes Status: Acute -Echo 05/08/19: LVEF 45%. Normal LV chamber size, Mild concentric left ventricular hypertrophy, Normal right ventricular structure and function, Moderate biatrial enlargement, Mild tricuspid regurgitation, global hypokinesis. -Stress Test: Gated EF = 50%, Small sized, moderate intensity, fixed apex and apical inferior defect with normal wall motion. These findings are suggestive of artifact. Perfusion imaging was negative for ischemia. No further cardiac workup necessary. Discussion w patient/family: The assessment and plan as outlined above was discussed with the patient and/or family members who expressed understanding and agreement. All questions were answered. Thank you for involving us in the care of your patient. Please call with any questions. The above assessment and plan will be discussed with Dr. Womack and I will make changes as appropriate. Subjective Principal diagnosis: New Afib Interval history: Doing well this morning, no complaints. Objective Vital Signs, Last 4 Hours Temp Pulse Resp BP Pulse Ox 05/09/19 11:24 98.0 F 88 20 113/79 95 General: Conversant, No Apparent Distress HEENT: Atraumatic, Normocephaly, Mucus Membranes Moist Cardiac: Other (irregularly irregular) Lungs: Normal Breath Sounds, No Wheeze, Rales, Rhonchi Neuro: Alert and responsive, No focal deficits noted Musculoskeletal: No Chest Wall Tenderness Extremities: No Clubbing, No Cyanosis, No Edema, Normal Pulses Results 05/09/19 01:11 05/09/19 01:11 Lab Results 05/09/19 05/09/19 01:11 01:11 WBC 8.6 Hgb 13.8 Hct 40.8 Plt Count 255 Sodium 138 Potassium 3.9 Chloride 103 Carbon Dioxide 26 BUN 14 Creatinine 0.77 Glucose 148 H Calcium 8.7 Magnesium 2.2 - Imaging and Cardiology Stress Test: report reviewed Echo: report reviewed Other Results: 12hr tele reviewed: average HR 88, afib, no events. Consult Discharge Plan - Plan Referrals: [facility] [Primary Care Provider] - CHADS2-VASC Score - Score Age: Less than 65 Sex: Male CHF History: No Hypertension history: Yes Stroke/TIA/Thromboembolism Hx: No Vascular disease history: No Diabetes history: Yes Score: 2 Cardiac Rehab - Cardiac Rehab Cardiac Rehab: Phase I consult completed. Patient was educated on why Cardiac Rehabilitation is beneficial to his/her health. Participating in a cardiac rehabilitation can improve the following: strengthen your heart, improve ejection fraction, weight reduction, decrease cholesterol levels, lower blood pressure, lower blood sugar, improve stamina, and enhance self-image. If he/she has any questions, they were instructed to call [facility] at [phone].
[2019-05-09] MEDS ORDERED: Pramoxine 15 GM FOAM Package TP PRN (12:04)
--- NOTE | 2019-05-09 12:57 | Internal Med Progress Note ---
Hospitalist Progress Note - Encounter Date of Encounter: 05/09/19 Time of Encounter: 08:35 - Subjective Interval History: No major events overnight. Patient was seen this a.m. He denied fever, chills or night sweats. He has no nausea, vomiting or abdominal pain. Patient denied chest pain, shortness of breath or palpitation. - Exam Vitals: Temp Pulse Resp BP Pulse Ox 98.0 F 88 20 113/79 95 05/09/19 11:24 05/09/19 11:24 05/09/19 11:24 05/09/19 11:24 05/09/19 11:24 Exam: GENERAL: Obese male NAD, A&O x3, pleasant and conversant SKIN: No skin lesions or rashes, non-jaundiced EYES: EOMI, PERRLA, no sclera icterus HENT: Head atraumatic, no facial asymmetry, frontal and maxillary sinus non- tender, normal hearing, oropharynx and mucosa moist and without any exudates NECK: No cervical lymphadenopathy, trachea midline, thyroid is palpable does not appear enlarged LUNGS: vesicular breath sounds, clear to auscultation, no wheeze, rhonchi, rales or crackles. Non labored respirations HEART: Normal rate and irregular rhythm, no murmurs or rubs ABDOMEN: soft, non-tender, non-distended, bowel sounds x 4 normoactive, large ventral hernia noted large healed surgical scar EXTRMITIES: No LE asymmetry, No LE edema, pedal pulses 1+ and radial pulses 2 + and equal bilaterally NEURO: Speech and comprehension appears intact. . PSYCH: Cooperative, non- anxious or irritable, mood and affect is appropriate - Assessment and Plan (1) New onset a-fib Current Visit: Yes Status: Acute (2) Diabetes Current Visit: Yes Status: Acute (3) Hypertension Current Visit: Yes Status: Acute (4) DVT prophylaxis Current Visit: Yes Status: Acute (5) Abnormal echocardiogram Current Visit: Yes Status: Acute (6) BRBPR (bright red blood per rectum) Current Visit: Yes Status: Resolved - Summary of Assessment and Plan Summary of Assessment and Plan: 64-year-old male with history of colon cancer status post resection who was admitted to the hospital for atrial fibrillation noted on EKG before colonoscopy. New onset atrial fibrillation: [id number] = 2, cardiology suggested Toprol and xarelto. BRBPR: Likely 2/2 hemorrhoids. GI is consulted, hemoglobin stable, tomorrow for EGD and colonoscopy as the patient will be on long-term anticoagulation. HFrEF: Not in decompensation, noted on echo. Stress test with finding of EF = 50%, Small sized, moderate intensity, fixed apex and apical inferior defect with normal wall motion. These findings are suggestive of artifact. Perfusion imaging was negative for ischemia. Continue BB and ACEI. T2Dm: Continue insulin and monitor fingersticks HTN: Continue home medication DVT prophylaxis: On Xarelto - Time Spent with Patient Total time spent is greater than 50% in coordination of care (as documented) at patient's floor/unit and/or counseling patient: Plan of Care Discussed with: patient Internal Medicine: Result - Labs CBC & Chem 7: 05/09/19 01:11 05/09/19 01:11 Labs: Short CBC 05/09/19 Range/Units 01:11 WBC 8.6 (4.3-11.1) K/mcL Hgb 13.8 (12.9-16.9) g/dL Hct 40.8 (37.5-50.1) % Plt Count 255 (140-400) K/mcL Neutrophils # 4.7 (1.6-8.9) K/mcL BMP 05/09/19 01:11 Sodium 138 Potassium 3.9 Chloride 103 Carbon Dioxide 26 BUN 14 Creatinine 0.77 Glucose 148 H Calcium 8.7 - ABG Interpretation ABG results: PT/INR, D-dimer PT 12.3 Seconds (9.4-12.1) H 05/07/19 11:07 Consult Discharge Plan - Plan [facility]Primary Care Provider[facility] - __ (2) Diabetes Qualifiers: Diabetes mellitus type: type 2 Diabetes mellitus shelter insulin use: without shelter use Diabetes mellitus complication status: without complication Qualified Code(s): E11.9 - Type 2 diabetes mellitus without complications (3) Hypertension Qualifiers: Hypertension type: essential hypertension Qualified Code(s): I10 - Essential (primary) hypertension
[2019-05-09] MEDS: Metoprolol XL (24 HR) Succ 25 MG TAB.ER.24H PO SCH (15:07)
[2019-05-09] MEDS ORDERED: *HR* Rivaroxaban 10 MG TABLET PO SCH (17:00)
[2019-05-10 04:35] LABS: Basophils # 0.1 K/mcL (0.0-0.2); Basophils % 0.6 %; Eosinophils # 0.1 K/mcL (0.0-0.6); Eosinophils % 1.3 %; Hematocrit 45.4 % (37.5-50.1); Immature Granulocytes % 0.3 % (0-4); Lymphocytes # 2.8 K/mcL (0.6-4.6); Lymphocytes % 27.5 %; Mean Corpuscular HGB Conc 34.4 g/dL (31.6-35.5); Mean Corpuscular Hemoglobin 29.2 pg (28.0-33.3); Mean Platelet Volume 9.2 fL (9.4-12.4); Monocytes # 0.6 K/mcL (0.0-1.3); Neutrophils # 6.6 K/mcL (1.6-8.9); Platelet Count 299 K/mcL (140-400); Red Blood Count 5.34 M/mcL (4.19-5.50); Red Cell Distribution Width 13.2 % (11.5-14.5); Segmented Neutrophils % 64.3 %; White Blood Count 10.2 K/mcL (4.3-11.1)
[2019-05-10 04:55] LABS: BUN/Creatinine Ratio 15 (6-26); Blood Urea Nitrogen 11 mg/dL (8-23); Calcium 9.3 mg/dL (8.6-10.3); Carbon Dioxide 23 mEq/L (23-29); Chloride 105 mEq/L (98-107); Glucose 138 mg/dL (70-105); Hemoglobin 15.6 g/dL (12.9-16.9); Osmolality,Calculated 288 (280-300); Potassium 3.9 mEq/L (3.5-5.1); Sodium 138 mEq/L (136-145); eGFR For African Americans > 60 (> 60); eGFR For Non-African Americans > 60 (> 60)
[2019-05-10] MEDS: Insulin LISPRO 300 UNITS/3 ML VIAL SQ SCH ×2 (08:54→11:41)
[2019-05-10] MEDS: Metoprolol XL (24 HR) Succ 25 MG TAB.ER.24H PO SCH (09:07)
[2019-05-10] MEDS: Aspirin 81 MG TAB.CHEW PO SCH (09:07)
[2019-05-10] MEDS ORDERED: Ondansetron 4 MG/2 ML VIAL ONE (12:31)
[2019-05-10] MEDS ORDERED: Propofol 500 MG/50 ML INFUS..BTL ONE (12:31)
--- NOTE | 2019-05-10 12:56 | Anesthesia Evaluation PreOp ---
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 ANALYST History: Denies Any Significant HX Other Medical History: Diabetes Type II, Other ([place]) Anesthesia History: No Prior Anesthetic Complications, Past Anesthesia Alcohol Use: none Drug use: none Medications and Allergies Fluticasone Propionate Nasal [Flonase] 100 mcg NS BID PRN 05/08/19 [History] Gemfibrozil [Lopid] 600 mg PO BID 05/08/19 [History] Lisinopril [Zestril] 20 mg PO DAILY 05/08/19 [History] Metformin HCl [Glucophage] 1,000 mg PO BID 05/08/19 [History] Allergy/AdvReac Type Severity Reaction Status Date / Time atorvastatin AdvReac Muscle Pain Verified 05/08/19 12:04 - Meds/Allergy Pre-op Review Medications Reviewed: Yes Allergies Reviewed: Yes Beta Blockers on Current Med List: Yes (toprol) If Beta Blockers taken, Date/Time (Last Dose taken): 0907 Anesthesia Results - Labs 05/10/19 03:42 05/10/19 03:42 - Imaging EKG: report reviewed Additional studies: 05/07/2019 echocardiogram w enhance Impressions: LVEF 45%. Normal LV chamber size.Mild concentric left ventricular hypertrophy. Indeterminate diastolic function. Normal right ventricular structure and function. Moderate biatrial enlargement. Mild tricuspid regurgitation. No evidence of pulmonary hypertension. stress 05/09/2019 Impression: Pharmacologic stress ECG is non-diagnostic for ischemia due to baseline non-specific ST and T changes. Gated EF = 50%. Small sized, moderate intensity, fixed apex and apical inferior defect with normal wall motion. These findings are suggestive of artifact. Perfusion imaging was negative for ischemia. Anesthesia Exam Vital Signs/O2 Sat/Glucose, Most Recent Temp Pulse Resp BP Pulse Ox 97.9 F 97 15 105/70 95 05/10/19 11:15 05/10/19 11:15 05/10/19 11:15 05/10/19 11:15 05/10/19 11:15 Blood Glucose* 135 - HEENT Pupil (Motor): Pupils equal Mallampati: III Teeth: Missing Denture Type: Upper: Complete Oral Opening: Greater than 3 - INSURANCE CLAIMS ANALYST LOC: Oriented INSURANCE CLAIMS ANALYST Motor: Normal RUE, Normal LUE, Normal RLE, Normal LLE, Normal Face INSURANCE CLAIMS ANALYST Sensory: Normal: RUE, LUE, RLE, LLE, Face - Cardiac Rhythm: Irregular Murmur: None - Pulmonary Breath Sounds: bilateral Clear Respiratory Effort: Symmetrical Anesthesia Assess/Plan ASA Score: 3 Level of consciousness: Cooperative, Oriented Anesthetic Plan: MAC Monitoring Plan: Standard Monitors Recovery Plan: PACU
[2019-05-10 13:15] VITALS: BP 127/77
--- NOTE | 2019-05-10 13:45 | Anesthesia Evaluation Post Op ---
Date of Encounter: 05/10/19 Time of Encounter: 13:45 - Vital Signs Vital Signs: Vital Signs/O2 Sat/Glucose, Most Recent Temp Pulse Resp BP Pulse Ox 98.1 F 113 18 127/77 97 05/10/19 13:14 05/10/19 13:14 05/10/19 13:14 05/10/19 13:14 05/10/19 13:14 Blood Glucose* 135 - Lungs Lungs: Clear Ascult./Percussion - Airway Airway: Non-obstructed - Cardiovascular Baseline Rhythm - Mental Status Mental Status: Alert & Oriented, Answers Appropriately - Pain Pain Scale: 0 - Nausea Vomiting Nausea Vomiting: Not Present - Hydration Hydration: NPO - Discharge PostOp Status: Transfer Patient to floor
--- NOTE | 2019-05-10 14:15 | Discharge Summary ---
- NOTES TO OUTPATIENT PROVIDER Notes to Outpatient Provider: Patient was admitted for new onset atrial fibrillation. Was started on metoprolol and xeralto. follow up with cardiology as outpatient is recommended. His EF was found to be 45% and stress test was negative for ischemia. Date of Encounter: 05/10/19 Time of Encounter: 09:25 - Discharge Diagnosis (1) New onset a-fib Priority: Primary Status: Resolved (2) Diabetes Priority: Secondary Status: Acute Qualifiers: Diabetes mellitus type: type 2 Diabetes mellitus supervisor long goods insulin use: without supervisor long goods use Diabetes mellitus complication status: without complication Qualified Code(s): E11.9 - Type 2 diabetes mellitus without complications (3) Hypertension Priority: Secondary Status: Chronic Qualifiers: Hypertension type: essential hypertension Qualified Code(s): I10 - Essential (primary) hypertension (4) DVT prophylaxis Priority: Secondary Status: Acute (5) Abnormal echocardiogram Priority: Secondary Status: Chronic (6) BRBPR (bright red blood per rectum) Priority: Secondary Status: Ruled-out Hospital course: Mr. Domínguez is a 64 year old male with history of colon cancer status post resection who was admitted to the hospital for new onset A. fib prior to his colonoscopy. Cardiology service was consulted and patient was placed on Xarelto and metoprolol. His echo revealed ejection fraction of 45% and stress tests was negative for ischemia. GI was also consulted for clearance for starting anticoagulation and patient had EGD and colonoscopy with normal findings except for internal hemorrhoids. Today, patient is clinically and hemodynamically stable and he will be discharged home in stable condition. Follow-up with cardiology as recommended. Discharge discussed with: patient - Time Spent with Patient Total time spent providing and/or coordinating discharge services: 45 minutes - Discharge Medications Prescriptions: New Metoprolol Succinate [Toprol Xl] 50 mg PO DAILY #90 tab.er.24h Acetaminophen [Tylenol] 650 mg PO Q6HR PRN tablet PRN Reason: Mild Pain/Fever Rivaroxaban [Xarelto] 20 mg PO 1700 #90 tablet Lisinopril [Zestril] 5 mg PO DAILY #90 tablet Continued Gemfibrozil [Lopid] 600 mg PO BID Fluticasone Propionate Nasal [Flonase] 100 mcg NS BID PRN PRN Reason: Allergy Symptoms Metformin HCl [Glucophage] 1,000 mg PO BID Discontinued Lisinopril [Zestril] 20 mg PO DAILY Home Medications: Fluticasone Propionate Nasal [Flonase] 100 mcg NS BID PRN 05/08/19 [History] Gemfibrozil [Lopid] 600 mg PO BID 05/08/19 [History] Metformin HCl [Glucophage] 1,000 mg PO BID 05/08/19 [History] Acetaminophen [Tylenol] 650 mg PO Q6HR PRN tablet 05/10/19 [Rx] Lisinopril [Zestril] 5 mg PO DAILY #90 tablet 05/10/19 [Rx] Metoprolol Succinate [Toprol Xl] 50 mg PO DAILY #90 tab.er.24h 05/10/19 [Rx] Rivaroxaban [Xarelto] 20 mg PO 1700 #90 tablet 05/10/19 [Rx] Allergies/Adverse Reactions: Allergy/AdvReac Type Severity Reaction Status Date / Time atorvastatin AdvReac Muscle Pain Verified 05/08/19 12:04 Date of admission: 05/07/19 12:19 [facility] care physician: [facility] Consults: 05/07/19 18:11 Consult to Cardiology [CONS] Routine Comment: Consulting Provider: Cardiology Amparo Reason for Consult: New onset atrial fibrillation started on heparin, patient is interested in the watchman device Call Completed: No 05/08/19 14:15 Consult to Gastroenterology [CONS] Routine Consulting Provider: Gastroenterology Amparo Reason for Consult: clearance for supervisor long goods anticoagulation Call Completed: No - Constitutional Vitals: Temp Pulse Resp BP Pulse Ox 98.1 F 113 18 127/77 97 05/10/19 13:14 05/10/19 13:14 05/10/19 13:14 05/10/19 13:14 05/10/19 13:14 Exam: GENERAL: Obese male NAD, A&O x3, pleasant and conversant SKIN: No skin lesions or rashes, non-jaundiced EYES: EOMI, PERRLA, no sclera icterus HENT: Head atraumatic, no facial asymmetry, frontal and maxillary sinus non- tender, normal hearing, oropharynx and mucosa moist and without any exudates NECK: No cervical lymphadenopathy, trachea midline, thyroid is palpable does not appear enlarged LUNGS: vesicular breath sounds, clear to auscultation, no wheeze, rhonchi, rales or crackles. Non labored respirations HEART: Normal rate and irregular rhythm, no murmurs or rubs ABDOMEN: soft, non-tender, non-distended, bowel sounds x 4 normoactive, large ventral hernia noted large healed surgical scar EXTRMITIES: No LE asymmetry, No LE edema, pedal pulses 1+ and radial pulses 2 + and equal bilaterally NEURO: Speech and comprehension appears intact. . PSYCH: Cooperative, non- anxious or irritable, mood and affect is appropriate - Patient Status Disposition: Home, Self-Care Condition: Good Functional capacity at discharge: independent ambulation Overall status at discharge: patient is back to baseline - Discharge Instructions Follow Up With: [facility] [Primary Care Provider[facility] - Chary Womack DO [Partnered Physician] - - Diet and Activity Activity: increase activity as tolerated Diet: low salt diet
== END 2019-05-10 14:46 | disposition home or self-care (01) ==
LOC: 2ANU 09:00 → EMEROOARM 09:00 → SUATTDRO 12:19 → 2ANU 13:03
PROVIDERS: ADMIT Pharmacist; ATTEND Internal Medicine